=== PATIENT | male | born 1970 | race Caucasian/White ===

== ENCOUNTER 2020-06-03 15:40 | Emergency (ER) | payer BC, OTHER ==
--- NOTE | 2020-06-03 16:27 | TELE ---
HPI Do you have fever,cough or shortness of breath?: No - General Reason For Visit: COVID TESTING History Source: Patient Exam Limitations: No Limitations - History of Present Illness 06/03/20 16:23 Patient is a 49-year-old male who participated in a virtual urgent care visit for routine cover testing. He is a teacher in the city and states he would just like to know if he is COVID positive and asymptomatic. He denies any recent COVID contacts. He denies any recent travel outside of the within the last 30 days or any travel outside of [place] within the last 14. He denies any past medical history and states he is allergic to penicillin. Please note: This telehealth visit was performed via audio only as the patient was having technical difficulties joining the video visit. Past History - Medical History Allergies/Adverse Reactions: Allergies Allergy/AdvReac Type Severity Reaction Status Date / Time No Known Allergies Allergy Verified 01/05/16 20:18 Home Medications: Ambulatory Orders Aspirin [ASA -] 81 mg PO DAILY #30 tab.chew 01/07/16 Hydrochlorothiazide [Hctz -] 12.5 mg PO DAILY #30 cap 01/07/16 Amlodipine Besylate 10 mg PO DAILY tablet 01/20/16 CVA: Yes (STATES HE HAD A CVA YESTERDAY) - Surgical History Abdominal Surgery: Yes (HERNIA) - Psycho-Social/Smoking History Smoking History: Never smoked Have you smoked in the past 12 months: No Review of Systems - Review of Systems Comments:: 06/03/20 16:24 - Review of Systems Able to Perform ROS?: Yes Constitutional: No: Fever, Chills, Loss of Appetite, Night Sweats, Weakness; positive: Routine cover test HEENTM: No: Eye Pain, Vision changes, Ear Pain, Throat Pain, Throat Swelling, Mouth Pain, Difficulty Swallowing Respiratory: No: Cough, Shortness of Breath, Wheezing, Sputum Production Cardiac (ROS): No: Chest Pain, Chest Tightness, Palpitations, Irregular Heart Beat, Edema ABD/GI: No: Nausea, Vomiting, Abdominal Pain, Diarrhea : No Dysuria, No Hematuria, No Frequency, No Urgency Musculoskeletal: No: Muscle Pain, Back Pain, Joint Pain, Muscle Weakness, Neck Pain Integumentary: No: Lesions, Rash Neurological: No: Headache, Numbness, Tingling, Weakness, Speech Difficulties *Physical Exam - Physical Exam 06/03/20 16:24 - Physical Exam HEENT: Normal Voice, Hearing Grossly Normal Respiratory/Chest: Speaking in full sentences Neurologic: Fully Oriented, Alert, Normal Mood/Affect, Normal Response - Medical Decision Making 06/03/20 16:25 Assessment: Patient is a 49-year-old male who presents for virtual urgent care visit for routine COVID testing. Plan: -COVID swab ordered -Patient to proceed to our [facility] for cover testing -COVID counseling given, isolation precautions reviewed -Patient understands and agrees with this treatment plan Please note: This telehealth visit was performed via audio only as the patient was having technical difficulties joining the video visit. Discharge Diagnosis at time of Disposition: Counseled about COVID-19 virus infection - Referrals Follow-up Referral(s): Eliot Clements MD [Primary Care Provider] - - Patient Instructions Discharge Instructions: [facility]-Coronavirus Instructions, [facility] COVID-19 Isolation Protocol Additional Discharge Instructions: You were seen via a telehealth visit and tested for COVID today. You should follow isolation precautions as per [facility] guidelines. Thank you for participating in our telehealth medicine program. If you have any worsening symptoms such as high fever, shaking chills, profuse vomiting or any other worsening symptoms you should go to your local emergency department immediately or follow up with your primary care doctor immediately. If you become symptomatic: [email or web address] for more information about testing at the [facility]. Take Tylenol 650 mg every 6 hours as needed for fever or pain. You may take Robitussin or other [id number] cough syrup. Follow the dosing instructions on the bottle. Warm tea, honey, and salt water gargles may help your symptoms. Please take precautions and self quarantine for 2 weeks and follow-up with your primary care doctor and the Department of Health. Return to the nearest emergency department for shortness of breath, difficulty breathing, chest pain, or if you have any changes in your symptoms. - Discharge Disposition: HOME Condition at time of Disposition: Stable
== END 2020-06-03 16:27 | disposition home or self-care (01) ==
LOC: JVIRT 15:40
DX: Z11.59 Encounter for screening for other viral diseases (principal)
CPT/HCPCS: Q3014-GT; U0003

== ENCOUNTER 2021-01-09 09:23 | Emergency (ER) | payer BC, OTHER ==
[2021-01-09 09:34] VITALS: BP 148/90; PULSE 75; TEMP 98.5; BMI 27.2
[2021-01-09] MEDS ORDERED: IBUPROFEN 600 MG TABLET (FP) PO ONE (09:43)
[2021-01-09] MEDS ORDERED: IBUPROFEN 400 MG TABLET (FP) PO ONE (09:47)
== END 2021-01-09 10:31 | disposition home or self-care (01) ==
LOC: FER 09:23
DX: S82.892A Other fracture of left lower leg, initial encounter for closed fracture (principal)
CPT/HCPCS: 73610-TC-LT-FY; 73630-TC-LT; 99283-25